=== PATIENT | male | born 1990 | race Two or more races ===

== ENCOUNTER → 2025-04-15 | Emergency (ER) | payer BC ==
[~2025-04-15] VITALS: Ht 180.3 cm; Wt 80.7 kg
[~2025-04-15] MED LIST: DEXAMETHASONE SODIUM PHOSPHATE 4 MG/ML VIAL IM ONE; KETO10TA2 PO; KETOROLAC TROMETHAMINE 30 MG VIAL IM ONE; NORFLEX100MG PO; ORPHENADRINE CITRATE 30 MG/ML AMPUL IM ONE
[2025-04-15 10:28] VITALS: BP 158/90; O2SAT 97
== END | disposition home or self-care (01) ==
LOC: ER 10:20
DX: S40.011A Contusion of right shoulder, initial encounter (principal); W18.39XA Other fall on same level, initial encounter; Y93.67 Activity, basketball; Y92.89 Other specified places as the place of occurrence of the external cause; Y99.9 Unspecified external cause status